=== PATIENT | female | born 1980 | race Caucasian/White ===

== ENCOUNTER 2017-01-20 14:47 | Emergency (ER) | payer OTHER ==
--- NOTE | ~2017-01-20 | CR142 ---
[facility] A Service of [facility] RADIOLOGY TEXT RESULTS PATIENT: YASMANY LEE LOCATION: SED : 78 UNIT #: [id number] AGE: [address]: LEENA NGUYEN PA-C SEX: F ORDER DR: [id number] [place] [id number] E MR#: [id number] Acc #: [id number] NAME: YASMANY LEE : 1980 SEX: F STUDY DATE/TIME: 01/20/2017 15:07 UNIT: SED ROOM: STUDY DESCRIPTION: CR Hand Min 3 Views Rt Attending Physician: Leena Nguyen Pa-C Ordering Physician: Leena Nguyen Pa-C MEDICAL IMAGING REPORT This report is preliminary unless electronic signature is present. EXAM Right hand 3 views HISTORY Fell on outstretched hand. Pain and bruising. TECHNIQUE 3 views are submitted. COMPARISON STUDIES 01/19/2013. FINDINGS Re-demonstrated is an old healed fracture of fifth metacarpal. Remaining bony elements are intact and no acute fractures are seen. There is chronic deformity of the distal ulna, also unchanged. CONCLUSION Chronic deformities of the fifth metacarpal and of the distal ulna, unchanged from prior radiographs. Dictated by... Shaq Alejandre M.D. THIS IS AN ELECTRONICALLY VERIFIED REPORT Shaq Alejandre M.D. at 01/23/2017 5:11 PM JFK/horace TD: 01/20/2017 19:33 JOB #: [id number] [facility] A Service of [facility] RADIOLOGY TEXT RESULTS PATIENT: YASMANY LEE LOCATION: SED : 78 UNIT #: [id number] AGE: [address]: LEENA NGUYEN PA-C SEX: F ORDER DR: MEDICAL IMAGING REPORT Page 1 of 1
--- NOTE | ~2017-01-20 | CR282 ---
[facility] A Service of [facility] RADIOLOGY TEXT RESULTS PATIENT: YASMANY LEE LOCATION: SED : [birth year] UNIT #: [id number] AGE: [address]: LEENA NGUYEN PA-C SEX: F ORDER DR: [id number] [address] [address] [id number] E MR#: [id number] Acc #: [id number] NAME: YASMANY LEE : 1980 SEX: F STUDY DATE/TIME: 01/20/2017 15:07 UNIT: SED ROOM: STUDY DESCRIPTION: CR Wrist Min 3 View Rt Attending Physician: Leena Nguyen Pa-C Ordering Physician: Leena Nguyen Pa-C Primary Care Physician: [facility] MEDICAL IMAGING REPORT This report is preliminary unless electronic signature is present. EXAM Right wrist 3 views 01/20/2017 1507 hours HISTORY Patient fell on outstretched hand today. Pain and bruising, bruising of palm and wrist. COMPARISON Right wrist films 01/19/2013 FINDINGS AP, lateral and oblique views demonstrate no acute fracture. There is ulnar negative variance with spurring and ossicle at the distal radial ulnar articulation slightly progressive from 2012. Carpal bones are intact tact. Old healed distal fifth metacarpal fracture. IMPRESSION 1. No acute wrist fracture or dislocation. There is only negative variance and degenerative change at the distal radial ulna articulation and small ossicle present which appears chronic. The carpal bones are intact. 2. Old healed distal fifth metacarpal fracture. Dictated by... Maryellen Worley M.D. THIS IS AN ELECTRONICALLY VERIFIED REPORT Maryellen Worley M.D. at 01/23/2017 10:35 AM RAINER/dee [facility] A Service of [facility] RADIOLOGY TEXT RESULTS PATIENT: YASMANY LEE LOCATION: SED : 78 UNIT #: [id number] AGE: [address]: LEENA NGUYEN PA-C SEX: F ORDER DR: TD: 01/20/2017 19:25 JOB #: [id number] MEDICAL IMAGING REPORT Page 1 of 1
[~2017-01-20 14:47] MED LIST: ATENOLOL PO; BENZONATATE PO; CIPRO PO; CLARITIN10 MG PO; CLARITIN5 MG; CLINDAMYCIN HC300 MG PO; DICYCLOMINE HCL20 MG PO; DIFLUCAN PO; FLEXERIL PO; FLEXERIL10 M1 PO; IBUPROFEN800 MG PO; KCL PO; KLONOPIN; KLONOPIN1 MG PO; KLOR-CON; LASIX PO; LEXAPRO PO; LORTAB 10-5001 EACH PO; LORTAB 5/500 TA1 TA1 PO; LORTAB 7.5-5001 TAB PO; LYRICA PO; MAXZIDE 37.5 M1 EACH PO; MAXZIDE-25 MG1 UDTAB PO; MOBIC; MOBIC PO; MOBIC15 MG PO; NEXIUM PO; OMEPRAZOLE40 M1 PO; PERCOCET 5-3251 TAB PO; PERCOCET5/325 PO; PHENERGAN PO; PHENERGAN25 MG PO; PREDNISONE PO; ROBITUSSIN A-C-S1 ML PO; TYLENOL #3 PO; VIIBRYD40 MG PO; VITAMIN D50000 UNIT PO; ZITHROMAX PO; ZOFRAN8 MG PO
[2017-01-20] MEDS ORDERED: CLARITIN D (15:02)
== END 2017-01-20 15:59 | disposition home or self-care (01) ==
LOC: SED 14:47
DX: S60.221A Contusion of right hand, initial encounter (principal); W20.8XXA Other cause of strike by thrown, projected or falling object, initial encounter; Y92.009 Unspecified place in unspecified non-institutional (private) residence as the place of occurrence of the external cause
CPT/HCPCS: 29125; 73110; 73130; 99283